=== PATIENT | male | born 1950 | race Caucasian/White ===

== ENCOUNTER → 2017-01-28 | Outpatient (CLI) | payer MEDICARE, OTHER | LOC: KOH-I 11:00 | DX: R09.89 Other specified symptoms and signs involving the circulatory and respiratory systems (principal); I65.1 Occlusion and stenosis of basilar artery | CPT/HCPCS: 93880 ==

== ENCOUNTER → 2017-03-11 | Outpatient (CLI) | payer MEDICARE, OTHER | LOC: US 09:26 | DX: D64.9 Anemia, unspecified (principal); D69.6 Thrombocytopenia, unspecified; R93.5 Abnormal findings on diagnostic imaging of other abdominal regions, including retroperitoneum | CPT/HCPCS: 76705 ==

== ENCOUNTER 2020-11-05 10:16 | Inpatient (IN) | payer MEDICARE, OTHER ==
[~2020-11-05] VITALS: Ht 180.3 cm; Wt 83.2 kg
[~2020-11-05 10:16] MED LIST: ALDACTONE25 MG PO; ASPIRIN81 MG PO; BUMETANIDE2 MG PO; COMMODE; CONSTULOSE10 GM/15 M PO; FAMOTIDINE40 MG PO; FERROUS FUMARA324 MG PO; FLOMAX0.4 MG PO; LIPITOR TAB 1010 MG PO; NORVASC10 MG PO; PROTONIX 40 MG40 M1 PO; XIFAXAN 550 MG550 MG NG; ZYVOX600 MG PO
[2020-11-05 11:04] LABS: HEMOGLOBIN 9.6 gm/dl (14.0-17.5); RED BLOOD COUNT 3.44 M/UL (4.20-5.50); WHITE BLOOD COUNT 4.8 K/UL (4.5-11.0)
[2020-11-05] MEDS ORDERED: XIFAXAN550 MG PO (15:51)
[2020-11-06 04:56] LABS: HEMOGLOBIN 8.4 gm/dl (14.0-17.5)
[2020-11-06 05:07] LABS: RED BLOOD COUNT 3.03 M/UL (4.20-5.50); WHITE BLOOD COUNT 6.1 K/UL (4.5-11.0)
[2020-11-08] MEDS ORDERED: XIFAXAN550 MG PO (09:00)
[2020-11-08 09:10] LABS: HEMOGLOBIN 7.7 gm/dl (14.0-17.5); RED BLOOD COUNT 2.88 M/UL (4.20-5.50); WHITE BLOOD COUNT 6.9 K/UL (4.5-11.0)
[2020-11-11 05:09] LABS: HEMOGLOBIN 8.8 gm/dl (14.0-17.5); WHITE BLOOD COUNT 5.2 K/UL (4.5-11.0)
[2020-11-11 05:10] LABS: RED BLOOD COUNT 3.19 M/UL (4.20-5.50)
--- NOTE | 2020-11-12 03:37 | NUR ---
RECEIVED REPORT FROM NINO DUNHAM. PT TRANSFERRED TO ROOM [id number] FROM ICU. PT CONDITION IS STABLE. VITAL SIGNS-BP 115/48, HR 100, RESP 18, O2 SATS 98%, TEMP 98.5(O). NO COMPLAINTS VOICED. PT IS ALERT AND ORIENTED TO PLACE AND SELF. LUNG SOUNDS ARE SL COARSE AND DIMINISHED VIVIENNE. IV SITES X2 TO R ARM INTACT AND FLUSHES WELL. FOELY CATH PATENT AND DRAINING YELLOW URINE. PT HAS SKIN TEAR TO LEFT FOREARM, DTI TO R HEEL, AND COCCYX IS RED BUT BLANCHABLE. ARMS ARE SWOLLEN WITH R > L. WILL CONTINUE TO MONITOR PT.
[2020-11-12 04:59] LABS: HEMOGLOBIN 8.4 gm/dl (14.0-17.5); RED BLOOD COUNT 3.03 M/UL (4.20-5.50); WHITE BLOOD COUNT 4.9 K/UL (4.5-11.0)
--- NOTE | 2020-11-12 13:04 | NUR ---
11:45 DR GREY HERE TO DO THORACENTESIS, CONSENT SIGNED, PT TOLERATED PROCEDURE WELL, FLUID REMOVED AND SENT TO LAB.
--- NOTE | 2020-11-12 15:37 | NUR ---
15:10 PT FOUND UNRESPONSIVE, AGONAL BREATHING, BP IN 50"S, [facility] CALLED AT 15:10, DR CARTAGENA NOTIFIED, DR FISCHER HERE, BOLUS STARTED ALONG WITH LEVOPHED, 15:24 PT STOPPED BREATHING BEGAN BAGGING, 15:30 SUX AND ETOMIDATE GIVEN, PT INTUBATED AT THIS TIME, PT MOVED TO ICU ON 30MCG OF LEVOPHED
[2020-11-12 15:41] LABS: TOTAL PROTEIN, BODY FLUID 1.3 gm/dL
--- NOTE | 2020-11-12 15:46 | NUR ---
15:35 REPORT CALLED TO NINO ALMANZA
[2020-11-12 17:05] LABS: HEMOGLOBIN 5.2 gm/dl (14.0-17.5); RED BLOOD COUNT 1.83 M/UL (4.20-5.50); WHITE BLOOD COUNT 13.3 K/UL (4.5-11.0)
[2020-11-12 19:13] LABS: RED BLOOD COUNT 4.05 M/UL (4.20-5.50); WHITE BLOOD COUNT 12.6 K/UL (4.5-11.0)
[2020-11-12 19:14] LABS: HEMOGLOBIN 10.8 gm/dl (14.0-17.5)
[2020-11-13 05:39] LABS: RED BLOOD COUNT 3.07 M/UL (4.20-5.50); WHITE BLOOD COUNT 9.4 K/UL (4.5-11.0)
[2020-11-14 05:00] LABS: HEMOGLOBIN 7.7 gm/dl (14.0-17.5)
[2020-11-14 05:25] LABS: RED BLOOD COUNT 2.62 M/UL (4.20-5.50); WHITE BLOOD COUNT 5.1 K/UL (4.5-11.0)
[2020-11-15 05:59] LABS: HEMOGLOBIN 8.3 gm/dl (14.0-17.5); RED BLOOD COUNT 2.8 M/UL (4.20-5.50)
[2020-11-15 06:01] LABS: WHITE BLOOD COUNT 7.7 K/UL (4.5-11.0)
[2020-11-16 05:06] LABS: HEMOGLOBIN 8.9 gm/dl (14.0-17.5); RED BLOOD COUNT 2.95 M/UL (4.20-5.50)
[2020-11-16 05:09] LABS: WHITE BLOOD COUNT 33.8 K/UL (4.5-11.0)
== END 2020-11-16 15:03 | disposition short-term general hospital (02) | DRG 207 ==
LOC: ER1 10:16 → CDU 13:37 → CCU 13:37 → PROG CARE 11-12 03:10 → CCU 11-12 15:47
PROVIDERS: Family Medicine; Hospitalist; Internal Medicine; Internal Medicine Nephrology; Internal Medicine Pulmonary Disease; Physician Assistant; ADMIT Internal Medicine
PROC: 0BH17EZ Insertion of Endotracheal Airway into Trachea, Via Natural or Artificial Opening (ICD-10-PCS; principal; 2020-11-05)
PROC: 5A1955Z Respiratory Ventilation, Greater than 96 Consecutive Hours (ICD-10-PCS; 2020-11-05)
PROC: 0W9B30Z Drainage of Left Pleural Cavity with Drainage Device, Percutaneous Approach (ICD-10-PCS; 2020-11-12)
PROC: 30233K1 Transfusion of Nonautologous Frozen Plasma into Peripheral Vein, Percutaneous Approach (ICD-10-PCS; 2020-11-12)
PROC: 30233N1 Transfusion of Nonautologous Red Blood Cells into Peripheral Vein, Percutaneous Approach (ICD-10-PCS; 2020-11-12)
PROC: 30233R1 Transfusion of Nonautologous Platelets into Peripheral Vein, Percutaneous Approach (ICD-10-PCS; 2020-11-12)
PROC: B24BZZZ Ultrasonography of Heart with Aorta (ICD-10-PCS; 2020-11-12)
PROC: 0W9B30Z Drainage of Left Pleural Cavity with Drainage Device, Percutaneous Approach (ICD-10-PCS; 2020-11-13)
PROC: 5A09357 Assistance with Respiratory Ventilation, Less than 24 Consecutive Hours, Continuous Positive Airway Pressure (ICD-10-PCS; 2020-11-16)
DX: J96.01 Acute respiratory failure with hypoxia (principal); K72.00 Acute and subacute hepatic failure without coma; A41.9 Sepsis, unspecified organism; R65.21 Severe sepsis with septic shock; Z20.822 Contact with and (suspected) exposure to COVID-19; R57.1 Hypovolemic shock; N17.0 Acute kidney failure with tubular necrosis; J15.9 Unspecified bacterial pneumonia; I50.33 Acute on chronic diastolic (congestive) heart failure; N18.4 Chronic kidney disease, stage 4 (severe); J90 Pleural effusion, not elsewhere classified; J94.2 Hemothorax; J95.811 Postprocedural pneumothorax; I13.0 Hypertensive heart and chronic kidney disease with heart failure and stage 1 through stage 4 chronic kidney disease, or unspecified chronic kidney disease; E87.2 Acidosis; J96.02 Acute respiratory failure with hypercapnia; I25.10 Atherosclerotic heart disease of native coronary artery without angina pectoris; K70.31 Alcoholic cirrhosis of liver with ascites; E11.65 Type 2 diabetes mellitus with hyperglycemia; D63.1 Anemia in chronic kidney disease; E87.5 Hyperkalemia; N40.0 Benign prostatic hyperplasia without lower urinary tract symptoms; E11.22 Type 2 diabetes mellitus with diabetic chronic kidney disease; D69.6 Thrombocytopenia, unspecified; R00.1 Bradycardia, unspecified; I27.20 Pulmonary hypertension, unspecified; I48.0 Paroxysmal atrial fibrillation; J44.9 Chronic obstructive pulmonary disease, unspecified; F17.210 Nicotine dependence, cigarettes, uncomplicated; Z79.82 Long term (current) use of aspirin; Z79.899 Other long term (current) drug therapy; Z95.1 Presence of aortocoronary bypass graft; Z88.0 Allergy status to penicillin; Z88.8 Allergy status to other drugs, medicaments and biological substances; Z82.49 Family history of ischemic heart disease and other diseases of the circulatory system; Z83.3 Family history of diabetes mellitus
CPT/HCPCS: ECHO; 31500; 36415; 36430; 36600; 70450; 71045; 80048; 80053; 80202; 80307; 81001; 82140; 82550; 82553; 82803; 82962; 83036; 83605; 83615; 83735; 83874; 84132; 84157; 84484; 85007; 85025; 85027; 85610; 85730; 86140; 86850; 86900; 86901; 86920; 86927; 87040; 87070; 87086; 87205; 92950; 93005; 93306; 93308; 93971; 94002; 94003; 94640; 94660; 94664; 94760; 96372; 96374; 96375; 97163; 97166; 97530-GP-CQ; 99285; A6212; C1729; C9113; J0171; J0461; J0692; J1205; J1265; J1940; J1956; J2020; J2185; J2250; J2370; J2405; J2704; J3010; J3370; J7030; J7040; J7070; P9016; P9017; P9037; P9045; P9047; U0002